=== PATIENT | female | born 1975 | race Hispanic/Latino ===

== ENCOUNTER 2021-09-16 16:02 | Inpatient (IN) | payer SELFPAY ==
[2021-09-16] VITALS (11 sets, daily range): BP systolic 101–118; BP diastolic 44–61
[~2021-09-16] VITALS: Ht 170.2 cm; Wt 107.8 kg
[2021-09-16] MEDS ORDERED: ONDANSETRON 4MG INJ IVP ONE ×2 (17:00→20:30)
[2021-09-16] MEDS ORDERED: LIDOCAINE HCL 2% VISCOUS 15 ML UDCUP PO ONE (17:00)
[2021-09-16] MEDS ORDERED: MAG/ALUM/SIMETH 30 ML UDCUP PO ONE (17:00)
[2021-09-16] MEDS ORDERED: MORPHINE 2 MG SYG IVP ONE (20:30)
[2021-09-16] MEDS ORDERED: ZOSYN 3.375GM +NS 50ML IV ONE (20:30)
[2021-09-16 20:54] LABS: INR 0.99 (0.85-1.15); PROTHROMBIN TIME 10.8 SEC (9.6-11.6)
[2021-09-16 21:25] LABS: BASOPHILS % (AUTO) 0.4 % (0.0-5.0); EOSINOPHILS % (AUTO) 1.7 % (0.0-8.0); HEMATOCRIT 35.7 % (36-48); LYMPHOCYTES % (AUTO) 6.5 % (21.0-51.0); MEAN CORPUSCULAR HEMOGLOBIN 23.6 pg (27.0-33.0); MEAN CORPUSCULAR VOLUME 78.8 fL (79-99); MONOCYTES % (AUTO) 9.3 % (3.0-13.0); NEUTROPHILS % (AUTO) 81.2 % (40.0-77.0); PLATELET COUNT (AUTO) 306 K/uL (130-400); RED BLOOD CELL COUNT(AUTO) 4.53 MIL/uL (4.00-5.50); RED CELL DISTRIBUTION WIDTH 16.6 % (11.0-15.5); WHITE BLOOD COUNT (AUTO) 7.7 K/uL (4.8-10.8)
[2021-09-16] MEDS ORDERED: PROPOFOL 10 MG/ML 20ML VIAL IV ONE (21:26)
[2021-09-16] MEDS ORDERED: SUCCINYLCHOLINE CHLORIDE 20 MG/ML 10 ML VIAL ONE (21:26)
[2021-09-16] MEDS ORDERED: LIDOCAINE PF 100MG/5ML (2%) SYRINGE 5ML ONE (21:26)
[2021-09-16] MEDS ORDERED: FENTANYL CITRATE PF 50 MCG/1 ML 2ML VIAL ONE (21:26)
[2021-09-16] MEDS ORDERED: ONDANSETRON 4MG INJ IV PRN (21:30)
[2021-09-16] MEDS ORDERED: ROCURONIUM 10MG/1ML SYR 10 MG/ML ML ONE ×2 (21:33→21:54)
[2021-09-16] MEDS ORDERED: EPINEPHRINE 1 MG/ML 30ML VIAL IJ ONE (21:33)
[2021-09-16 21:39] LABS: CREATININE 0.7 mg/dL (0.5-1.5); POTASSIUM 3.8 mmol/L (3.5-5.1)
[2021-09-16 21:44] LABS: ALBUMIN 4.1 g/dL (3.5-5.0); BILIRUBIN,TOTAL 0.6 mg/dL (0.2-1.0)
[2021-09-16] MEDS ORDERED: SUGAMMADEX SODIUM 200 MG/2 ML VIAL IV ONE ×2 (22:00→22:05)
[2021-09-16] MEDS ORDERED: LABETALOL 20MG VIAL IV ONE (22:06)
[2021-09-16] MEDS: LACTATED RINGERS 1000ML 1,000 ML IV SCH ×2 (22:23→23:30)
[2021-09-17 03:49] LABS: BASOPHILS % (AUTO) 0.3 % (0.0-5.0); EOSINOPHILS % (AUTO) 0.9 % (0.0-8.0); HEMATOCRIT 34.7 % (36-48); LYMPHOCYTES % (AUTO) 2.8 % (21.0-51.0); MEAN CORPUSCULAR HEMOGLOBIN 23.6 pg (27.0-33.0); MEAN CORPUSCULAR HGB CONC 29.7 g/dL (32.0-36.0); MEAN CORPUSCULAR VOLUME 79.4 fL (79-99); MONOCYTES % (AUTO) 1.3 % (3.0-13.0); NEUTROPHILS % (AUTO) 93.9 % (40.0-77.0); PLATELET COUNT (AUTO) 347 K/uL (130-400); RED BLOOD CELL COUNT(AUTO) 4.37 MIL/uL (4.00-5.50); RED CELL DISTRIBUTION WIDTH 16.7 % (11.0-15.5); WHITE BLOOD COUNT (AUTO) 9.8 K/uL (4.8-10.8)
[2021-09-17 03:55] LABS: HEMOGLOBIN A1C 9.8 % (4.0-6.0)
[2021-09-17 03:58] VITALS: BP 110/57
[2021-09-17 04:13] LABS: CREATININE 0.7 mg/dL (0.5-1.5); MAGNESIUM 2.3 mg/dL (1.80-2.40); PHOSPHORUS 3.5 mg/dL (2.5-4.9); POTASSIUM 4.5 mmol/L (3.5-5.1)
[2021-09-17 08:00] VITALS: BP 115/60
[2021-09-17] MEDS: FAMOTIDINE 20MG VIAL IV SCH ×2 (09:07→20:15)
[2021-09-17] MEDS: ZOSYN 3.375GM +NS 50ML IV SCH ×2 (11:11→17:17)
[2021-09-17 12:00] VITALS: BP 123/71
[2021-09-17] MEDS: INSULIN HUMULIN R 100 UNIT/ML 3ML SQ SCH ×3 (12:22→20:17)
[2021-09-17 16:00] VITALS: BP 127/75
[2021-09-17] MEDS ORDERED: 0.9%NACL 50ML 50 ML IV ONE (16:41)
[2021-09-17 19:00] VITALS: BP 114/71
[2021-09-17 23:00] VITALS: BP 126/71
[2021-09-18] MEDS ORDERED: 0.9%NACL 50ML 50 ML IV ONE (00:35)
[2021-09-18] MEDS: ZOSYN 3.375GM +NS 50ML IV SCH ×2 (02:29→08:20)
[2021-09-18 03:00] VITALS: BP 120/77
[2021-09-18] MEDS: INSULIN HUMULIN R 100 UNIT/ML 3ML SQ SCH ×2 (06:07→12:23)
[2021-09-18 07:49] VITALS: BP 116/64
[2021-09-18 08:09] LABS: BASOPHILS % (AUTO) 0.5 % (0.0-5.0); EOSINOPHILS % (AUTO) 1.8 % (0.0-8.0); HEMATOCRIT 33.2 % (36-48); LYMPHOCYTES % (AUTO) 18.9 % (21.0-51.0); MEAN CORPUSCULAR HEMOGLOBIN 23.6 pg (27.0-33.0); MEAN CORPUSCULAR HGB CONC 29.8 g/dL (32.0-36.0); MEAN CORPUSCULAR VOLUME 79.2 fL (79-99); MONOCYTES % (AUTO) 11.8 % (3.0-13.0); NEUTROPHILS % (AUTO) 66.3 % (40.0-77.0); PLATELET COUNT (AUTO) 334 K/uL (130-400); RED BLOOD CELL COUNT(AUTO) 4.19 MIL/uL (4.00-5.50); RED CELL DISTRIBUTION WIDTH 17.2 % (11.0-15.5); WHITE BLOOD COUNT (AUTO) 5.6 K/uL (4.8-10.8)
[2021-09-18 08:19] LABS: CREATININE 0.6 mg/dL (0.5-1.5); POTASSIUM 3.6 mmol/L (3.5-5.1)
[2021-09-18] MEDS: FAMOTIDINE 20MG VIAL IV SCH (08:20)
[2021-09-18] MEDS ORDERED: AMOX-429 PO (09:09)
[2021-09-18] MEDS ORDERED: METF-444 PO (09:10)
[2021-09-18 11:58] VITALS: BP 115/68
== END 2021-09-18 12:30 | disposition home or self-care (01) | DRG 154 ==
LOC: EDH 16:02 → EDHIP 16:03 → OBSVTOIN 16:03 → 2AH 23:01
PROVIDERS: ADMIT Internal Medicine; ATTEND Internal Medicine
PROC: 0CCS8ZZ Extirpation of Matter from Larynx, Via Natural or Artificial Opening Endoscopic (ICD-10-PCS; principal; 2021-09-16 21:00)
DX: T17.328A Food in larynx causing other injury, initial encounter (principal); U07.1 COVID-19; E66.9 Obesity, unspecified; R13.10 Dysphagia, unspecified; E11.9 Type 2 diabetes mellitus without complications; Z83.3 Family history of diabetes mellitus; Z68.37 Body mass index [BMI] 37.0-37.9, adult; Z82.49 Family history of ischemic heart disease and other diseases of the circulatory system; Z90.710 Acquired absence of both cervix and uterus; Y93.89 Activity, other specified; X58.XXXA Exposure to other specified factors, initial encounter; Y92.89 Other specified places as the place of occurrence of the external cause; Y99.8 Other external cause status
CPT/HCPCS: 36415; 70490; 71045; 80048; 80053; 81025; 82948; 83036; 83735; 84100; 85025; 85378; 85610; 86140; 87635; 93005; 99291; C9803; G0378; J0171; J0330; J1815; J2001; J2405; J2543; J2704; J3010; J3490; J7120